=== PATIENT | female | born 1985 | race Caucasian/White ===

== ENCOUNTER 2025-04-15 09:30 | Emergency (ER) | payer OTHER ==
[~2025-04-15] VITALS: Ht 165.1 cm; Wt 61.2 kg
[~2025-04-15 09:30] MED LIST: AMOX250; CIPR500 PO; HYDACE5 PO; PHENA200 PO; PROM25 PO
[2025-04-15] MEDS ORDERED: Ondansetron HCl 2 MG / ML 2ML Vial IV PRN (09:55)
[2025-04-15] MEDS ORDERED: NS 1,000 ML IV SCH ×3 (10:30→13:25)
[2025-04-15] MEDS ORDERED: Metoclopramide HCl 5MG / ML 2ML Vial IV ONE (10:35)
[2025-04-15] MEDS ORDERED: Pantoprazole Sodium 40 MG Injection IV ONE (10:35)
[2025-04-15] MEDS ORDERED: HYDROmorphone HCl/Pf 1MG SYR IV PRN (10:35)
[2025-04-15 10:44] LABS: BASOPHILS ABSOLUTE AUTO 0.07 K/mm3 (0.00-0.23); BASOPHILS PERCENT AUTO 0 % (0-2); EOSINOPHILS ABSOLUTE AUTO 0.05 K/mm3 (0.00-0.68); EOSINOPHILS PERCENT AUTO 0 % (0-6); Hematocrit 46.2 % (33.0-51.0); Hemoglobin 16.1 g/dL (11.5-16.0); IMMATURE GRAN ABSOLUTE AUTO 0.06 K/mm3 (0.00-0.10); IMMATURE GRAN PERCENT AUTO 0 % (0-1); LYMPHOCYTES ABSOLUTE AUTO 1.21 K/mm3 (0.84-5.20); LYMPHOCYTES PERCENT AUTO 8 % (21-46); MONOCYTES ABSOLUTE AUTO 0.73 K/mm3 (0.16-1.47); MONOCYTES PERCENT AUTO 5 % (4-13); Mean Corpuscular HGB Conc 34.8 g/dL (31.5-36.5); Mean Corpuscular Volume 90 fL (80-100); NEUTROPHILS ABSOLUTE AUTO 14.11 K/mm3 (1.96-9.15); NEUTROPHILS PERCENT AUTO 87 % (41-73); NRBC ABSOLUTE 0.00 K/mm3 (0.00-0.02); NRBC Auto 0.0 /100 WBC (0.0-0.2); Platelet Count 332 K/mm3 (150-400); RDW Coefficient Variation 11.4 % (11.7-14.2); RDW Standard Deviation 37.5 fL (35.1-46.3)
[2025-04-15 11:01] LABS: Source, Urine Clean Catch
[2025-04-15 11:03] LABS: Alanine Aminotransfer (ALT/SGP 32.0 U/L (12-78); Albumin, Blood 4.5 g/dL (3.4-5.0); Albumin/Globulin Ratio 1.3 (0.8-1.8); Anion Gap 14.0 mmol/L (3-11); Aspartate Aminotrans (AST/SGOT 21.0 U/L (12-37); Bilirubin, Total 0.8 mg/dL (0.1-1.0); Blood Urea Nitrogen 19.0 mg/dL (8-24); CO2, Blood 19.0 mmol/L (21-32); Calcium, Blood 10.1 mg/dL (8.5-10.1); Chloride, Blood 106.0 mmol/L (98-108); Creatinine, Blood 0.9 mg/dL (0.40-1.00); Globulin, Blood 3.5 g/dL (2.2-4.0); Glucose, Blood 236.0 mg/dL (70-99); Potassium, Blood 3.5 mmol/L (3.5-5.5); Sodium, Blood 135.0 mmol/L (136-145); Total Protein, Blood 8.0 g/dL (6.4-8.2)
[2025-04-15 11:21] LABS: Bilirubin, Urine Neg (Neg); Color, Urine Brown (P-Yellow); Glucose Qualitative, Urine Neg (Neg); Ketones, Urine 4+ (Neg); Leukocyte Esterase, Urine 1+ (Neg); Protein, Urine 2+ (Neg); Specific Gravity, Urine 1.015 (1.003-1.022); Urobilinogen, Urine 1+ (Normal)
[2025-04-15 11:34] LABS: Red Blood Cells, Urine Not Seen /hpf (0-2)
[2025-04-15] MEDS ORDERED: CefTRIAXone Sodium 1,000 MG in NS 100 ML IV ONE (13:25)
[2025-04-15] MEDS ORDERED: POLY500 PO (13:52)
[2025-04-15] MEDS ORDERED: CODACE30 PO (13:52)
[2025-04-15] MEDS ORDERED: SENNA LAXATIVE8.6 MG PO (13:52)
[2025-04-15] MEDS ORDERED: OXAYDO5 M1 PO (13:52)
[2025-04-15] MEDS ORDERED: ONDA4 PO (13:52)
[2025-04-15] MEDS ORDERED: CEFP200 PO (13:52)
[2025-04-15 14:45] VITALS: BP 110/22
== END 2025-04-15 15:57 | disposition home or self-care (01) ==
LOC: ER 09:30
PROVIDERS: Emergency Medicine
DX: N30.91 Cystitis, unspecified with hematuria (principal); E87.20 Acidosis, unspecified; Z79.2 Long term (current) use of antibiotics; Z79.899 Other long term (current) drug therapy
CPT/HCPCS: 74177; 80053; 81001; 83605; 83690; 84703; 85025; J0696; J1171; J2405; J2470; J2765; J7030; Q9967